=== PATIENT | male | born 1950 | race Caucasian/White ===

== ENCOUNTER 2019-10-15 09:12 | Emergency (ER) | payer MEDICARE, SELFPAY ==
[2019-10-15 09:27] VITALS: BP 139/88; PULSE 72; RESP 16; TEMP 36.3; O2SAT 99; BMI 29.4
--- NOTE | 2019-10-15 09:29 | ED_ITS ---
HPI - Abdominal Pain General: Chief Complaint: Abdominal Pain Stated Complaint: lower right abd pain Time Seen by Provider: 10/15/19 09:17 Source: patient Mode of arrival: ambulatory Limitations: no limitations History of Present Illness: HPI narrative: Patient is a very nice 69-year-old male who presents to ED today along with his for complaints of abdominal pain. Patient states this morning when he rolled over on his left side he immediately began experiencing severe right lower quadrant pain and described it as a very sharp burning sensation. He states pain lasted approximately an hour and then subsided. He states he is not having much pain currently but admittedly has a very high pain tolerance. He denies nausea, vomiting, changes in bowel movements. He denies urinary symptoms. No fever/chills/body aches. MD elicited complaint: abdominal pain Pain Consistency: intermittent Location: Periumbilical and RLQ Radiation: none Migration to: no migration Associated Symptoms: Reports heartburn (chronic ); Denies change in bowel habits, change in stool character, chills, coffee ground emesis, constipation, diarrhea, dysuria, fever(s), hematochezia, hematemesis, melena, nausea and vomiting Review of Systems Const: Denies: fever(s), chills, body aches, fatigue or malaise ENMT: Denies: odynophagia Card: Denies: chest pain Resp: Denies: dyspnea GI: Reports: abdominal pain and heartburn (chronic ); Denies: nausea, vomiting, hematemesis, coffee ground emesis, diarrhea, constipation, change in bowel habits, pain on defecation, change in stool character, hematochezia or melena : Denies: flank pain, difficulty urinating, dysuria, urinary frequency, urinary urgency or urinary hesitancy Musc: Denies: neck pain or back pain Skin/Breast: Denies: rash Neuro: Denies: headache(s) Physical Exam Const: COMMON NORMALS: no acute distress, average body habitus, patient oriented x3, no limitations, healthy appearing, alert and well nourished HENMT: COMMON NORMALS: normocephalic and atraumatic HEAD & SCALP: normocephalic and atraumatic Resp: COMMON NORMALS: normal respiratory effort and clear to auscultation bilaterally AUSCULTATION: clear to auscultation bilaterally Cardio: COMMON NORMALS: regular rate and regular rhythm RATE: regular rate RHYTHM: regular rhythm GI: COMMON NORMALS: Normal to inspection, nondistended, normoactive bowel sounds present, Soft to palpation, non-tender, No hepatosplenomegaly present and no masses INSPECTION: Yes normal to inspection AUSCULTATION: Yes normoactive bowel sounds PALPATION: Yes Soft to palpation and Yes No hepatosplenomegaly present : COMMON NORMALS: Yes no CVA tenderness BLADDER/KIDNEY EXAM: Yes no CVA tenderness Back/Pelvis: COMMON NORMALS: no CVA tenderness Extremity: COMMON NORMALS: normal to inspection GENERAL: Yes normal exam except as noted Neuro: COMMON NORMALS: patient oriented x3 SENSORIUM/ORIENTATION: Yes alert Skin: COMMON NORMALS: no rashes or lesions noted GENERAL SKIN EXAM: no rashes or lesions noted Course Vital Signs: Vital signs: Vital Signs Temperature 97.3 F L 10/15/19 09:27 Pulse Rate 65 10/15/19 11:00 Respiratory Rate 16 10/15/19 11:00 Blood Pressure 131/87 10/15/19 11:00 Pulse Oximetry 98 10/15/19 11:00 MDM - Abdominal Pain Lab Data: Labs: Lab Results 10/15/19 10/15/19 10/15/19 Range/Units 09:35 09:35 09:51 WBC 6.7 (4.0-10.0) 10^3/ uL RBC 4.91 (4.1-5.3) 10^6/u L Hgb 15.7 (11.7-16.6) g/dL Hct 45.8 (42.0-52.0) % MCV 93.3 (80-94) fL MCH 32.0 (28.0-34.0) pg MCHC 34.3 (30.0-36.0) g/dL RDW 12.7 (12.1-15.1) % Plt Count 169 (130-400) 10^3/c mm MPV 10.9 H (7.4-10.4) fL Neut % (Auto) 55.1 % Lymph % (Auto) 25.1 % [place] % (Auto) 11.3 % Eos % (Auto) 7.4 % Baso % (Auto) 0.9 % Neut # (Auto) 3.68 (1.8-7.7) 10^3/u L Lymph # (Auto) 1.7 (0.8-4.8) 10^3/u L [place] # (Auto) 0.8 (0.2-0.9) 10^3/u L Eos # (Auto) 0.5 (0.0-0.8) 10^3/u L Baso # (Auto) 0.1 (0.0-0.1) 10^3/u L Nucleated RBC % (a uto) 0 % Nucleated RBCs # 0.0 /100WBC Sodium 141 (136-145) mmol/L Potassium 4.4 (3.5-5.1) mmol/L Chloride 107 (98-107) mmol/L Carbon Dioxide 24 (22-29) mmol/L Anion Gap 14.4 (5-19) BUN 16 (8-23) mg/dL Creatinine 0.9 (0.7-1.2) mg/dL GFR Calculation 83.4 L (90-130) mL/min Glucose 123 H (65-115) mg/dL Calculated Osmolal ity 290 (285-295) mOsm/k g Calcium 9.2 (8.5-10.5) mg/dL Total Bilirubin 0.5 (0.15-1.2) mg/dL AST 19 (0-40) U/L ALT 30 (0-41) U/L Alkaline Phosphata se 50 (40-130) IU/L Total Protein 6.8 (6.6-8.7) g/dL Albumin 4.0 (3.5-5.2) g/dL Globulin 2.8 (1.3-4.6) g/dL Lipase 49 (13-60) U/L Urine Color Yellow (Yellow) Urine Appearance Clear (CLEAR) Urine pH 5 (5-7) Ur Specific Gravit y 1.020 (1.005-1.030) Urine Protein Neg (Negative) Urine Glucose (UA) Norm (Normal) Urine Ketones Negative (Negative) Urine Blood Neg (Negative) Urine Nitrate Negative (Negative) Urine Bilirubin Neg (NEGATIVE) Urine Urobilinogen Neg (Negative) mg/dL Ur Leukocyte Aye ase Negative (Negative) Imaging Data ^: CT Abd/Pel: Radiologist's impression: [address] [address] [address] Scan Report Signed Patient: Cody,Dante D Unit #: [id number] : 1950 Age/Sex: 69 / M ADM Date: 10/15/19 Loc: ER Room/Bed: Attending Dr: Ordering Provider/Ordering MD: Mariana Goetz Date of Service: 10/15/19 Procedure(s): CT abdomen pelvis w con* [id number] Accession Number(s): [id number] Report Number: [id number] WS: [id number] CT ABDOMEN AND PELVIS WITH CONTRAST HISTORY: RLQ pain TECHNIQUE: Imaging performed of the abdomen and pelvis with IV contrast. Single phase imaging of the abdomen. Coronal and sagittal reformats are submitted. All CT scans at [facility] use at least one of these dose optimization techniques: automated exposure control; mA and/or kV adjustment per patient size (includes targeted exams where dose is matched to clinical indication); or iterative reconstruction. IV CONTRAST: Omnipaque 300; 95 mL IV. Oral contrast: No DLP: 1400.1 mGy.cm COMPARISON: None available. Lower thorax: Benign granuloma at the LEFT lung base. Coronary artery atherosclerosis and prior CABG. Mild enlargement of the heart. No hiatal hernia. Liver/biliary system: Normal size with no intrahepatic dilatation. Gallbladder: Normal. No gallstones or wall thickening. No pericholecystic fluid. Pancreas: Normal. Spleen: Normal. Adrenal glands: Normal. Right kidney: Normal size kidney. Exophytic cyst lower pole measures 3.6 cm. No hydronephrosis or obstruction. Left kidney: No obstruction. Exophytic cyst from the mid kidney measures 3.5 cm. No hydronephrosis. Aorta: Moderate atherosclerosis. Calcified plaque and intimal thickening with no aneurysm. Lymphadenopathy: None. Free fluid: None. GI tract: No obstruction. The appendix is normal. No mucosal thickening. There are several diverticula in the descending and sigmoid colon without evidence for acute diverticulitis. Abdominal wall: Unremarkable abdominal wall. No hernia. Pelvis: Minimal prostate enlargement. Urinary bladder is negative. No free fluid or adenopathy. Bones: Mild reverse S-shaped scoliosis lumbar spine with asymmetric disc space narrowing and severe degenerative disease at L3-4. 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 L3 anterolisthesis by [address]/CT abdomen pelvis w con* [id number] IMPRESSION: 1. No acute abdominal or pelvic abnormalities. 2. Severe diverticulosis in the sigmoid colon without acute diverticulitis. 3. Bilateral renal cysts. 4. Atherosclerosis aorta with no aneurysm. Dictated By: Azalia Wise DO Signed By: Azalia Wise DO Signed Date/Time: 10/15/19 1048 DD/ 1039 Discharge Plan Discharge Patient Disposition: Home Clinical Impression: Abdominal wall strain Qualifiers: Encounter type: initial encounter Qualified Code(s): S39.011A - Strain of muscle, fascia and tendon of abdomen, initial encounter Condition: Stable Prescriptions: No Action aspirin 325 mg Tablet 325 mg PO DAILY RF: 0 metoprolol succinate 50 mg Tablet Extended Release 24 Hr 75 mg PO BID RF: 0 Glucosamine 500 mg Tablet 1,500 mg PO DAILY RF: 0 Vitamin C 500 mg Tablet 500 mg PO DAILY RF: 0 Flomax 0.4 mg Capsule 0.4 mg PO DAILY RF: 0 losartan 25 mg Tablet 25 mg PO DAILY RF: 0 zinc 50 mg Tablet 50 mg PO DAILY RF: 0 Nexium 20 mg Capsule,Delayed Release(Dr/Ec) 20 mg PO BID RF: 0 Crestor 5 mg Tablet 5 mg PO BEDTIME RF: 0 coenzyme Q10 200 mg Capsule 200 mg PO BEDTIME RF: 0 Xyzal 5 mg Tablet 5 mg PO DAILY RF: 0 Fish Oil 1,000 mg (120 mg-180 mg) Capsule 1 cap PO DAILY RF: 0 Discharge Orders: Discharge Order (Routine); Ordered 10/15/19 Ordered By: Mariana Goetz Activity Restrictions/Additional Instructions: As discussed please seek reevaluation for worsening abdominal pain, vomiting, changes in bowel movements, inability to urinate, difficulty or painful urination, fevers greater than 100.4, any masses/bulges in your abdomen, not being able to pass gas, or any other concerns you may have. I hope you begin to feel better soon. 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
--- NOTE | 2019-10-15 09:29 | CT_ITS ---
WS: [id number] CT ABDOMEN AND PELVIS WITH CONTRAST HISTORY: RLQ pain TECHNIQUE: Imaging performed of the abdomen and pelvis with IV contrast. Single phase imaging of the abdomen. Coronal and sagittal reformats are submitted. All CT scans at use at least one of these dose optimization techniques: automated exposure control; mA and/or kV adjustment per patient size (includes targeted exams where dose is matched to clinical indication); or iterativ e reconstruction. IV CONTRAST: Omnipaque 300; 95 mL IV. Oral contrast: No DLP: 1400.1 mGy.cm COMPARISON: None available. Lower thorax: Benign granuloma at the LEFT lung base. Coronary artery atherosclerosis and prior CABG. Mild enlargement of the heart. No hiatal hernia. Liver/biliary system: Normal size with no intrahepatic dilatation. Gallbladder: Normal. No gallstones or wall thickening. No pericholecystic fluid. Pancreas: Normal. Spleen: Normal. Adrenal glands: Normal. Right kidney: Normal size kidney. Exophytic cyst lower pole measures 3.6 cm. No hydronephrosis or obs truction. Left kidney: No obstruction. Exophytic cyst from the mid kidney measures 3.5 cm. No hydronephrosis. Aorta: Moderate atherosclerosis. Calcified plaque and intimal thickening with no aneurysm. Lymphadenopathy: None. Free fluid: None. GI tract: No obstruction. The appendix is normal. No mucosal thickening. There are several diverticul a in the descending and sigmoid colon without evidence for acute diverticulitis. Abdominal wall: Unremarkable abdominal wall. No hernia. Pelvis: Minimal prostate enlargement. Urinary bladder is negative. No free fluid or adenopathy. Bones: Mild reverse S-shaped scoliosis lumbar spine with asymmetric disc space narrowing and severe d egenerative disease at L3-4. 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 L3 anterolisthesis by [address]/CT abdomen pelvis w con* [id number] IMPRESSION: 1. No acute abdominal or pelvic abnormalities. 2. Severe diverticulosis in the sigmoid colon without acute diverticulitis. 3. Bilateral renal cysts. 4. Atherosclerosis aorta with no aneurysm.
[2019-10-15 09:30] VITALS: BP 135/84; PULSE 66; RESP 16; O2SAT 98
--- NOTE | 2019-10-15 09:55 | PC.NURSE ---
Pt urine sent to lab, pt changed into gown.
[2019-10-15 09:59] LABS: Add Urine Microscopic? NO
[2019-10-15 10:03] LABS: Bilirubin Urine Neg (NEGATIVE); Blood Urine Neg (Negative); Glucose Urine UA Norm (Normal); Ketones Urine Negative (Negative); Leukocyte Esterase Urine Negative (Negative); Nitrate Urine Negative (Negative); Protein Urine Neg (Negative); Urine Appearance Clear (CLEAR); Urine Color Yellow (Yellow); Urobilinogen Urine Neg (Negative); pH Urine 5 (5-7)
[2019-10-15 10:03] LABS: Basophils # 0.1 10^3/uL (0.0-0.1); Basophils % 0.9 %; Eosinophils # 0.5 10^3/uL (0.0-0.8); Eosinophils % 7.4 %; Hematocrit 45.8 % (42.0-52.0); Hemoglobin 15.7 g/dL (11.7-16.6); Lymphocytes # 1.7 10^3/uL (0.8-4.8); Lymphocytes % 25.1 %; Mean Corpuscular HGB Conc 34.3 g/dL (30.0-36.0); Mean Corpuscular Volume 93.3 fL (80-94); Mean Platelet Volume 10.9 fL (7.4-10.4); Monocytes # 0.8 10^3/uL (0.2-0.9); Monocytes % 11.3 %; Neutrophils # 3.68 10^3/uL (1.8-7.7); Neutrophils % 55.1 %; Nucleated Red Blood Cells % 0 %; Platelet Count 169 10^3/cmm (130-400); Red Blood Count 4.91 10^6/uL (4.1-5.3); Red Cell Distribution Width 12.7 % (12.1-15.1); White Blood Count 6.7 10^3/uL (4.0-10.0)
[2019-10-15 10:11] VITALS: BP 116/74; PULSE 64; RESP 16; O2SAT 98
--- NOTE | 2019-10-15 10:14 | PC.NURSE ---
Pt and updated on wait for CT scan.
[2019-10-15 10:22] LABS: Alanine Aminotransferase 30 U/L (0-41); Alkaline Phosphatase 50 IU/L (40-130); Anion Gap 14.4 (5-19); Aspartate Amino Transferase 19 U/L (0-40); Blood Urea Nitrogen 16 mg/dL (8-23); Calcium 9.2 mg/dL (8.5-10.5); Carbon Dioxide 24 mmol/L (22-29); Chloride 107 mmol/L (98-107); Globulin 2.8 g/dL (1.3-4.6); Glomerular Filtration Rate 83.4 mL/min (90-130); Glucose 123 mg/dL (65-115); Lipase 49 U/L (13-60); Osmolality Calculated 290 mOsm/kg (285-295); Potassium 4.4 mmol/L (3.5-5.1); Sodium 141 mmol/L (136-145); Total Bilirubin 0.5 mg/dL (0.15-1.2); Total Protein 6.8 g/dL (6.6-8.7)
--- NOTE | 2019-10-15 10:28 | PC.NURSE ---
Pt in CT
[2019-10-15] MEDS: iohexol 300 mg/mL 100 mL Btl IV (10:29)
[2019-10-15 10:39] VITALS: BP 138/86; PULSE 69; RESP 17; O2SAT 99
--- NOTE | 2019-10-15 10:40 | PC.NURSE ---
Pt returned from CT
[2019-10-15 11:00] VITALS: BP 131/87; PULSE 65; PULSE 66; RESP 16; O2SAT 97; O2SAT 98
--- NOTE | 2019-10-15 11:05 | PC.NURSE ---
RECEIVED REPORT FROM MONIE YOUNGER ASSUMED CARE.
--- NOTE | 2019-10-15 11:07 | PC.NURSE ---
Report given to AREN Aaron. BRANDON Lind at bedside to discuss CT results. Pt with call light in reach and no needs at this time.
== END 2019-10-15 11:23 | disposition home or self-care (01) ==
PROVIDERS: Emergency Provider Physician Assistant
DX: S39.011A Strain of muscle, fascia and tendon of abdomen, initial encounter (principal); Z79.82 Long term (current) use of aspirin; X58.XXXA Exposure to other specified factors, initial encounter
CPT/HCPCS: 12345; 74177; 80053; 81003; 83690; 85025; 99283; Q9967